=== PATIENT | male | born 1980 | race Native Hawaiian/Other Pacific Islander ===

== ENCOUNTER 2023-04-03 11:04 | Emergency (ER) | payer OTHER, SELFPAY ==
[2023-04-03] VITALS (9 sets, daily range): BP systolic 127–172; BP diastolic 68–96; PULSE 55–72; RESP 15–22; TEMP 36.4; O2SAT 96–100; BMI 29.8
[2023-04-03 11:38] LABS: Add Manual Diff / Slide Review NO; Basophils Absolute Auto 0 /uL (0-100); Basophils Percent Auto 0.3 % (0-2); Eosinophils Absolute Auto 100 /uL (0-450); Eosinophils Percent Auto 1.2 % (2-4); Hematocrit 44.3 % (41-53); Hemoglobin 15.2 g/dL (13.5-17.5); Lymphocytes Absolute Auto 1400 /uL (1100-4500); Lymphocytes Percent Auto 28.6 % (25-40); Mean Corpuscular HGB Conc 34.4 % (30-36); Mean Corpuscular Hemoglobin 30.5 PG (26-34); Mean Corpuscular Volume 88.8 fL (80-100); Monocytes Absolute Auto 400 /uL (0-900); Monocytes Percent Auto 8.4 % (3-14); Neutrophils Absolute Auto 2900 /uL (1500-7000); Neutrophils Percent Auto 61.5 % (50-75); Platelet Count 181 X10^3/uL (150-400); Red Blood Cell Count 4.99 X10^6/uL (4.5-5.9); Red Cell Distribution Width 13.7 % (11.6-14.8); White Blood Cell Count 4.8 X10^3/uL (4.5-11.0)
[2023-04-03 11:52] LABS: Alanine Aminotransferase 136 IU/L (<50); Albumin 4.6 g/dL (3.5-5.0); Albumin Globulin Ratio 1.4 (1.0-2.8); Alkaline Phosphatase 60 U/L (38-126); Aspartate Aminotransferase 93 IU/L (17-59); Bilirubin Total 1.6 mg/dL (0.2-1.3); Blood Urea Nitrogen 12 mg/dL (9-20); Calcium 9.2 mg/dL (8.4-10.2); Carbon Dioxide 25 mmol/L (22-32); Chloride 102 mmol/L (98-107); Estimated Glomerular Filt Rate > 60 mL/min (>60); Globulin 3.2 g/dL (1.7-4.1); Glucose 101 mg/dL (70-100); HEMOLYSIS < 15 (0-50); Lipase 143 U/L (23-300); Potassium 3.6 mmol/L (3.4-5.1); Sodium 137 mmol/L (137-145); Total Protein 7.8 g/dL (6.3-8.2)
--- NOTE | 2023-04-03 12:16 | PC.NURSE ---
seizure pads in place for pt reporting h/o ETOH w/d and DT's.
--- NOTE | 2023-04-03 12:25 | DI.RAD.S_ITS ---
PROCEDURE: XR CHEST 1V INDICATIONS: chest pain TECHNIQUE: One view of the chest was acquired. COMPARISON: None. FINDINGS: Surgical changes and devices: None. Lungs and pleura: Lungs are clear. No pleural effusions or pneumothorax. Mediastinum: Mediastinal contours appear normal. Heart size is normal. Bones and chest wall: No suspicious bony lesions. Overlying soft tissues appear unremarkable. IMPRESSION: No acute cardiopulmonary disease. Dictated by: Saira Arnold M.D. on 04/03/2023 at 12:40 Approved by: Saira Arnold M.D. on 04/03/2023 at 12:43
[2023-04-03 12:50] LABS: PTT Partial Thromboplastin Tim 30 SECONDS (26-36)
[2023-04-03 12:53] LABS: Creatine Kinase 299 U/L (55-170); Estimated Glomerular Filt Rate > 60 mL/min (>60); Magnesium 2.2 mg/dL (1.6-2.3)
[2023-04-03 13:06] LABS: Troponin I < 0.012 ng/mL (0.01-0.034)
--- NOTE | 2023-04-03 13:24 | DI.US.S_ITS ---
PROCEDURE: US ABDOMEN LIMITED INDICATIONS: epigastric/abd pain TECHNIQUE: Real-time focused scanning was performed of the abdomen, with image documentation. COMPARISON: None. FINDINGS: The liver is mildly enlarged measuring approximately 18.4 cm. Visualization is difficult, primarily through intercostal windows. There is a dependent/adherent echogenic focus in the gallbladder measuring 3 mm. There is no posterior shadow. Gallbladder wall is normal thickness and there is no pericholecystic fluid or Cortez sign. No intra or extrahepatic biliary dilatation. The visible portion of the pancreas is normal. No free fluid in the right upper quadrant. IMPRESSION: 1. Single nonshadowing dependent gallstone versus adherent sludge or polyp. No follow-up is needed given the small size. 2. No evidence of cholecystitis. 3. Mild hepatomegaly and hepatic hyperechogenicity indicating steatosis or other intrinsic liver disease. Dictated by: Saira Arnold M.D. on 04/03/2023 at 13:44 Approved by: Saira Arnold M.D. on 04/03/2023 at 13:48
--- NOTE | 2023-04-03 13:30 | ED.CHESTPAIN ---
HPI - Chest Pain General Chief Complaint: Abdominal Pain Stated Complaint: [facility]C Detox Time Seen by Provider: 04/03/23 13:14 Source: patient Mode of arrival: Ambulatory Limitations: no limitations History of Present Illness HPI narrative: This is a 42-year-old with history of alcohol abuse, chronic back pain with prior back surgery on sertraline and gabapentin with complaint of just abdominal discomfort. Patient states he was been drinking for about 7 days, stopped started to have withdrawals had shakiness, hallucinations he states that is actually resolved he was hurting all over in his neck chest abdomen which has been slowly improving over time. He had nausea but no active vomiting he had some loose stools. Had sweats. Patient denies fevers or chills. He states he had pain that was sort of epigastric in nature last night has not had any this morning. Patient states no shortness of breath. No cough cold or congestion. No syncope. He states no persistent nausea or vomiting. No persistent diarrhea constipation. He noticed his urine was quite orange he states he drank a lot of water took some [id number] vitamins and was hydrated lot in the orange discoloration has resolved. Patient states no new swelling in extremities. He states he has gone through alcohol withdrawal in the past. He states that he is much improved. He was concerned as he is had the persistent epigastric/chest pain. Patient states sertraline gabapentin or his only daily medications. No prior surgeries besides his back surgery. Tobacco, drinks sometimes pt a day, no illicit. Does primary care through the [facility]. Patient states he has already called he is an financial reporting specialist through the [facility] and has outpatient follow-up in his trying to get back and outpatient detox. 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 No family history of cardiac, embolic disease. Patient states he is had family history of ETOH use. Related Data Allergies Allergy/AdvReac Type Severity Reaction Status Date / Time No Known Drug Allergies Allergy Verified 04/03/23 11:06 Review of Systems Review of Systems ROS Unobtainable: All systems reviewed & are unremarkable except as noted in HPI and below Patient History Social History Smoking Status: Unknown if ever smoked Smoking Status: Unknown if ever smoked alcohol intake frequency: 3 or more drinks per day Substance Use Type: does not use Exam Narrative Exam Narrative: GENERAL: Alert and oriented x three, male in mild distress. HEENT: Head normocephalic, atraumatic, EOMI, pupils reactive, face symmetric, moist mucous membranes NECK: Supple, full range of motion CARDIOVASCULAR: Regular rate and rhythm without murmurs, rubs or gallops. No JVD. No swelling bilateral lower extremities. No reproducible chest pain. No rash or skin changes. RESPIRATORY: Breath sounds equal bilaterally, no wheezes rales or rhonchi. No tachypnea or accessory muscle use. ABDOMEN: Soft, nontender. Nondistended. Normoactive bowel sounds all 4 quadrants. No guarding or rebound, rigidity, no mass : No CVA tenderness EXTREMITIES: Normal range of motion, no clubbing or edema. Neurovascularly intact NEUROLOGICAL: Cranial nerves II through XII grossly intact. Moving all extremities SKIN: Warm, dry, no petechiae, no rashes or lesions. Initial Vital Signs Initial Vital Signs: Vital Signs Temperature 97.5 F L 04/03/23 11:06 Pulse Rate 70 04/03/23 11:06 Respiratory Rate 15 04/03/23 11:06 Blood Pressure 137/91 H 04/03/23 11:06 Pulse Oximetry 100 04/03/23 11:06 Oxygen Delivery Method Room Air 04/03/23 11:06 Scores HEART Score Heart Score history: Slightly Suspicious Heart Score EKG: Non-Specific repolarization disturbance Heart Score Age: < 45 years old Heart Score risk factors: No known risk factors Heart Score troponin: < or = to normal limit Heart Score Total: 1 Course Orders Ordered: ED Orders 04/03/23 11:15 EKG-12 Lead Stat 04/03/23 11:20 Complete Blood Count AUTO DIFF Stat Comprehensive Metabolic Panel Stat Creatinine & eGFR Stat Lipase Stat Magnesium Stat PTT Partial Thromboplastin Pankaj Stat Prothrombin Time INR Stat Troponin & CK Cardiac Panel Stat 04/03/23 12:25 XR chest 1V Stat 04/03/23 13:24 US abdomen limited Stat Discontinued Medications Ondansetron HCl (Ondansetron 4 Mg/2 Ml Inj) 4 mg IV NOW PRN PRN Reason: Nausea And Vomiting Vital Signs Vital signs: Vital Signs - 8 hr 04/03/23 11:06 04/03/23 11:15 04/03/23 11:30 Temperature 97.5 F L Pulse Rate 70 72 63 Respiratory Rate 15 22 Blood Pressure 137/91 H 142/90 H 127/83 Pulse Oximetry 100 96 97 Oxygen Delivery Method Room Air Room Air Room Air 04/03/23 11:45 04/03/23 12:00 04/03/23 12:30 Temperature Pulse Rate 61 62 63 Respiratory Rate 16 17 19 Blood Pressure 151/93 H 153/96 H Pulse Oximetry 98 97 98 Oxygen Delivery Method Room Air Room Air Room Air 04/03/23 13:00 04/03/23 14:05 04/03/23 15:16 Temperature Pulse Rate 62 55 L 64 Respiratory Rate 18 20 18 Blood Pressure 141/85 H 152/93 H 172/68 H Pulse Oximetry 99 98 97 Oxygen Delivery Method Room Air Room Air Room Air MDM - Chest Pain Lab Data 04/03/23 11:20 04/03/23 11:20 Labs: Lab Results 04/03/23 04/03/23 04/03/23 Range/Units 11:20 11:20 11:20 WBC 4.8 (4.5-11.0) X10^3/uL RBC 4.99 (4.5-5.9) X10^6/uL Hgb 15.2 (13.5-17.5) g/dL Hct 44.3 (41-53) % MCV 88.8 (80-100) fL MCH 30.5 (26-34) PG MCHC 34.4 (30-36) % RDW 13.7 (11.6-14.8) % Plt Count 181 (150-400) X10^3/uL Neut % (Auto) 61.5 (50-75) % Lymph % (Auto) 28.6 (25-40) % [place] % (Auto) 8.4 (3-14) % Eos % (Auto) 1.2 L (2-4) % Baso % (Auto) 0.3 (0-2) % Neut # (Auto) 2900 (9956-6803) /uL Lymph # (Auto) 1400 (2278-5751) /uL [place] # (Auto) 400 (0-900) /uL Eos # (Auto) 100 (0-450) /uL Baso # (Auto) 0 (0-100) /uL PT 11.0 (10.1-12.7) SECONDS INR 1.0 (0.9-1.3) APTT 30 (26-36) SECONDS Sodium 137 (137-145) mmol/L Potassium 3.6 (3.4-5.1) mmol/L Chloride 102 (98-107) mmol/L Carbon Dioxide 25 (22-32) mmol/L BUN 12 (9-20) mg/dL Creatinine 0.80 (0.66-1.25) mg/dL Estimated GFR > 60 (>60) mL/min BUN/Creatinine Ratio 15.0 (6-22) Glucose 101 H (70-100) mg/dL Calcium 9.2 (8.4-10.2) mg/dL Magnesium (1.6-2.3) mg/dL Total Bilirubin 1.6 H (0.2-1.3) mg/dL AST 93 H (17-59) IU/L ALT 136 H (<50) IU/L Alkaline Phosphatase 60 (38-126) U/L Total Creatine Kinase (55-170) U/L Troponin I (0.01-0.034) ng/mL Total Protein 7.8 (6.3-8.2) g/dL Albumin 4.6 (3.5-5.0) g/dL Globulin 3.2 (1.7-4.1) g/dL Albumin/Globulin Ratio 1.4 (1.0-2.8) Lipase 143 (23-300) U/L 04/03/23 Range/Units 11:20 WBC (4.5-11.0) X10^3/uL RBC (4.5-5.9) X10^6/uL Hgb (13.5-17.5) g/dL Hct (41-53) % MCV (80-100) fL MCH (26-34) PG MCHC (30-36) % RDW (11.6-14.8) % Plt Count (150-400) X10^3/uL Neut % (Auto) (50-75) % Lymph % (Auto) (25-40) % [place] % (Auto) (3-14) % Eos % (Auto) (2-4) % Baso % (Auto) (0-2) % Neut # (Auto) (9058-2199) /uL Lymph # (Auto) (7227-1324) /uL [place] # (Auto) (0-900) /uL Eos # (Auto) (0-450) /uL Baso # (Auto) (0-100) /uL PT (10.1-12.7) SECONDS INR (0.9-1.3) APTT (26-36) SECONDS Sodium (137-145) mmol/L Potassium (3.4-5.1) mmol/L Chloride (98-107) mmol/L Carbon Dioxide (22-32) mmol/L BUN (9-20) mg/dL Creatinine 0.81 (0.66-1.25) mg/dL Estimated GFR > 60 (>60) mL/min BUN/Creatinine Ratio (6-22) Glucose (70-100) mg/dL Calcium (8.4-10.2) mg/dL Magnesium 2.2 (1.6-2.3) mg/dL Total Bilirubin (0.2-1.3) mg/dL AST (17-59) IU/L ALT (<50) IU/L Alkaline Phosphatase (38-126) U/L Total Creatine Kinase 299 H (55-170) U/L Troponin I < 0.012 (0.01-0.034) ng/mL Total Protein (6.3-8.2) g/dL Albumin (3.5-5.0) g/dL Globulin (1.7-4.1) g/dL Albumin/Globulin Ratio (1.0-2.8) Lipase (23-300) U/L Imaging Data Chest x-ray: Radiologist's Impression: [address] [address] XRay Report Signed Patient: Adam Grijalva MR#: [id number] : 1980 Acct:[id number] Age/Sex: 42 / M Date of Service: 04/03/23 Loc: ED Accession Number: [id number] ?? Procedure: XR chest 1V Ordering Provider: Mireya Lam D.O. PROCEDURE:? XR CHEST 1V ? INDICATIONS:? chest pain ? TECHNIQUE:? One view of the chest was acquired.? ? COMPARISON:? None. ? FINDINGS:? ? Surgical changes and devices:? None.? ? Lungs and pleura:? Lungs are clear.? No pleural effusions or pneumothorax.? ? Mediastinum:? Mediastinal contours appear normal.? Heart size is normal.? ? Bones and chest wall:? No suspicious bony lesions.? Overlying soft tissues appear unremarkable.? ? IMPRESSION:? No acute cardiopulmonary disease.? ? ? Dictated by: Saira Arnold M.D. on 04/03/2023 at 12:40 ? ? Approved by: Saira Arnold M.D. on 04/03/2023 at 12:43?? US - abdomen: Radiologist's Impression: Close Abdomen Ultrasound (Signed) Saira Arnold - 04/03/23 Chest X-Ray (Signed) Saira Arnold - 04/03/23 Launch?[address] [address] Ultrasound Report Signed Patient: Adam Grijalva MR#: [id number] : 1980 Acct:[id number] Age/Sex: 42 / M Date of Service: 04/03/23 Loc: ED Accession Number: [id number] ?? Procedure: US abdomen limited Ordering Provider: Mireya Lam D.O. PROCEDURE: US ABDOMEN LIMITED ? INDICATIONS:? epigastric/abd pain ? TECHNIQUE:? Real-time focused scanning was performed of the abdomen, with image documentation.? ? COMPARISON:? None. ? FINDINGS:? The liver is mildly enlarged measuring approximately 18.4 cm.? Visualization is difficult, primarily through intercostal windows.? ? There is a dependent/adherent echogenic focus in the gallbladder measuring 3 mm.? There is no posterior shadow.? Gallbladder wall is normal thickness and there is no pericholecystic fluid or Cortez sign.? ? No intra or extrahepatic biliary dilatation.? The visible portion of the pancreas is normal.? No free fluid in the right upper quadrant. ? IMPRESSION:? ? 1. Single nonshadowing dependent gallstone versus adherent sludge or polyp.? No follow-up is needed given the small size. ? 2. No evidence of cholecystitis. ? 3. Mild hepatomegaly and hepatic hyperechogenicity indicating steatosis or other intrinsic liver disease.? ? ? Dictated by: Saira Arnold M.D. on 04/03/2023 at 13:44 ? ? Approved by: Saira Arnold M.D. on 04/03/2023 at 13:48?? ECG Data Attestation: I personally reviewed and interpreted this ECG as follows: Prior ECG tracings: not available for review Interpretation: Sinus rhythm rate of 66, MT 166, QRS of 96 and QTC 438. No acute ST elevation T-wave slightly inverted in 3, J-point elevation V2 V3 for no reciprocal change. Patient does not have priors MDM Narrative Medical decision making narrative: 42-year-old male presents to the emergency department after having gone through alcohol withdrawal at home was having chest pain as well as abdominal pain and hurting all over, describes some hallucinations and tremoring. Consistent with withdrawal. He states that has improved likely had some dehydration had some was discolored urine. Patient states has been improving but had chest pain until last night. None today. Patient does not have any acute changes troponin, questionable ST-elevation EKG but maybe repolarization, patient's LFTs are elevated with bilirubin, AST ALT with negative lipase. Discussed with patient was having sort of epigastric pains will get abdominal ultrasound but suspect some of his changes maybe from alcohol use. Imaging including chest x-ray shows no acute change and ultrasound show shows mildly enlarged liver 18.4 cm dependent adherent echogenic focus in the gallbladder measuring 3 mm no posterior shadow, gallbladder wall is normal thickness no pericholecystic fluid or Cortez sign. No biliary dilation likely adherent sludge or polyp no follow-up required at this time, no evidence of cholecystitis and changes indicating steatosis or other intrinsic liver disease. Suspect elevation of bilirubin is more related to alcohol use but discussed return precautions. 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 Discussed with patient need for follow-up, repeat labs was given a copy of his labs here in the department. Patient feels comfortable returning no recurrent symptoms. Discharge Plan Departure Patient Disposition: Home Clinical Impression: Elevated liver enzymes Instructions: Alcoholic Hepatitis (Alternative Therapy) Activity Restrictions/Additional Instructions: Your liver enzymes are elevated today, copies included of your lab results. Please follow-up with your physician to follow these and make sure that they improve and are not worsening. Your imaging also shows changes consistent with liver disease likely cirrhosis. Please return for new recurrent chest pain, abdominal pain, persistent vomiting if you have jaundice or turn yellow, new swelling in your extremities or other new or concerning changes. Referrals: Miscellaneous,Doctor, MD [Primary Care Provider] - Stand Alone Forms: Patient Portal/API
== END 2023-04-03 15:17 | disposition home or self-care (01) ==
PROVIDERS: Emergency Provider Emergency Medicine
DX: R74.8 Abnormal levels of other serum enzymes (principal); R07.9 Chest pain, unspecified; R10.13 Epigastric pain
CPT/HCPCS: 36415; 71045; 76705; 80053; 82550; 82565; 83690; 83735; 84484; 85025; 85610; 85730; 93005; 99284

== ENCOUNTER → 2023-10-19 11:38 | Outpatient (CLI) | payer OTHER, SELFPAY ==
[2023-10-19 14:22] LABS: Influenza A - CEPHEID Flu A NEGATIVE (NEGATIVE); Influenza B - CEPHEID Flu B POSITIVE (NEGATIVE); Respiratory Syncytial Virus Negative (Negative)
[2023-10-19 14:24] LABS: COVID-19 CEPHEID 4-PLEX PCR Negative (Negative)
== END ==
PROVIDERS: Visit Provider Physician Assistant
DX: R05.1 Acute cough (principal); J02.9 Acute pharyngitis, unspecified
CPT/HCPCS: 0241U; 87070